=== PATIENT | female | born 2000 | race Two or more races ===

== ENCOUNTER 2020-10-01 03:55 | Emergency (ER) | payer SELFPAY ==
[~2020-10-01] VITALS: Ht 170.2 cm; Wt 75.3 kg
[2020-10-01 04:25] VITALS: BP 114/63
[2020-10-01] MEDS ORDERED: METOCLOPRAMIDE 10 MG/2 ML VIAL ONE (04:50)
[2020-10-01] MEDS ORDERED: ONDANSETRON 4MG INJ ONE (04:50)
[2020-10-01] MEDS ORDERED: PANTOPRAZOLE 40 MG/VIAL ONE (04:51)
[2020-10-01] MEDS ORDERED: KETOROLAC 30MG VIAL (30MG/ML) ONE (04:51)
[2020-10-01] MEDS ORDERED: FAMOTIDINE 20MG VIAL IV ONE ×2 (04:52→05:00)
[2020-10-01] MEDS ORDERED: 0.9%NACL 1000ML 1,000 ML IV ONE ×2 (04:52→05:00)
[2020-10-01 04:54] LABS: BASOPHILS % (AUTO) 0.3 % (0.0-5.0); EOSINOPHILS % (AUTO) 0.2 % (0.0-8.0); HEMATOCRIT 35.5 % (36-48); LYMPHOCYTES % (AUTO) 12.4 % (21.0-51.0); MEAN CORPUSCULAR HGB CONC 33.5 g/dL (32.0-36.0); MEAN CORPUSCULAR VOLUME 86.6 fL (79-99); MONOCYTES % (AUTO) 10.2 % (3.0-13.0); NEUTROPHILS % (AUTO) 76.4 % (40.0-77.0); PLATELET COUNT (AUTO) 289 K/uL (130-400); RED CELL DISTRIBUTION WIDTH 12.6 % (11.0-15.5); WHITE BLOOD COUNT (AUTO) 10.5 K/uL (4.8-10.8)
[2020-10-01] MEDS ORDERED: METOCLOPRAMIDE 10 MG/2 ML VIAL IVP ONE (05:00)
[2020-10-01] MEDS ORDERED: KETOROLAC 30MG VIAL (30MG/ML) IVP ONE (05:00)
[2020-10-01] MEDS ORDERED: ONDANSETRON 4MG INJ IVP ONE (05:00)
[2020-10-01] MEDS ORDERED: PANTOPRAZOLE 40 MG/VIAL IVP ONE (05:00)
[2020-10-01 05:02] LABS: CREATININE 0.8 mg/dL (0.5-1.5); POTASSIUM 3.7 mmol/L (3.5-5.1)
[2020-10-01 05:06] LABS: BILIRUBIN,TOTAL 0.3 mg/dL (0.2-1.0); TOTAL PROTEIN, SERUM 6.9 g/dL (6.0-8.3)
[2020-10-01 05:45] VITALS: BP 98/63
[2020-10-01 06:38] LABS: APPEARANCE,URINE CLEAR (CLEAR); BILIRUBIN,URINE NEGATIVE (NEGATIVE); COLOR,URINE YELLOW (YELLOW); GLUCOSE, URINE (UA) NEGATIVE (NEGATIVE); KETONES,URINE 40 mg/dL (NEGATIVE); LEUKOCYTE ESTERASE ,URINE SMALL (NEGATIVE); NITRATE,URINE NEGATIVE (NEGATIVE); OCCULT BLOOD,URINE TRACE-INTACT (NEGATIVE); PROTEIN,URINE NEGATIVE (NEGATIVE); UROBILINOGEN,URINE 0.2 mg/dL (0.2-1.0)
[2020-10-01 06:52] LABS: RBC,URINE 0-1 /HPF (0-1)
[2020-10-01 06:53] LABS: BACTERIA,URINE Moderate /HPF (None Seen)
[2020-10-01] MEDS ORDERED: CEFTRIAXONE 1G VIAL ONE (08:19)
[2020-10-01] MEDS ORDERED: ONDA4TAB10 PO (08:20)
[2020-10-01] MEDS ORDERED: LACT10SO5 PO (08:20)
[2020-10-01] MEDS ORDERED: CEPH500B PO (08:20)
[2020-10-01] MEDS ORDERED: METO-296 PO (08:20)
[2020-10-01 08:26] VITALS: BP 107/63
[2020-10-01] MEDS ORDERED: CEFTRIAXONE 1G VIAL IVP ONE (08:30)
== END 2020-10-01 08:38 | disposition home or self-care (01) ==
LOC: EDH 03:55
DX: N39.0 Urinary tract infection, site not specified (principal); K59.09 Other constipation; R50.9 Fever, unspecified; R11.2 Nausea with vomiting, unspecified; Z20.822 Contact with and (suspected) exposure to COVID-19; Z88.0 Allergy status to penicillin
CPT/HCPCS: 36415; 74176; 80053; 81001; 83690; 84703; 85025; 87040 ×2; 87077; 87088; 87186; 87635; 87804 ×2; 96361; 96374; 96375; 99284; C9113; C9803; J0696; J1885; J2405; J2765; J3490; J7030

== ENCOUNTER 2024-11-23 08:07 | Emergency (ER) | payer SELFPAY ==
[~2024-11-23] VITALS: Ht 160 cm; Wt 88.9 kg
[~2024-11-23 08:07] MED LIST: CEPH500B PO; LACT-441 PO; METO-296 PO; ONDA-243 PO
[2024-11-23 09:26] VITALS: BP 115/59; PULSE 90; RESP 18; TEMP 98.8; O2SAT 98
--- NOTE | 2024-11-23 09:34 | ERN ---
General Chief Complaint: Fever Stated Complaint: FEVER,BACK PAIN,COUGH Time Seen by MD: 08:09 Source: patient, family History of Present Illness Initial Comments Patient is a 24-year-old female coming in with multiple complaints. Patient states that she has been having fever for a couple of days. Long with the she states he has been having some cough URI symptoms. Along with this she states that she has had urinary discomfort pain. Allergies: Coded Allergies: Penicillins (Unverified Allergy, Unknown, 10/01/20) Home Meds Active Scripts Metoclopramide HCl (Reglan) 10 Mg Tablet, 10 MG PO TIDP, #20 TAB 0 Refills Prov:QUENTIN CORONADO MD 10/01/20 Ondansetron (Ondansetron Odt) 4 Mg Tab.rapdis, 4 MG PO Q6HPRN, #20 TAB 0 Refills Prov:QUENTIN CORONADO MD 10/01/20 Lactulose (Lactulose) 10 Gm/15 Ml Solution, 10 GM PO DAILY PRN for CONSTIPATION, #300 ML 0 Refills Prov:QUENTIN CORONADO MD 10/01/20 Cephalexin Monohydrate (Keflex) 500 Mg Cap, 500 MG PO QID for 10 Days, #40 CAP 0 Refills Prov:QUENTIN CORONADO MD 10/01/20 Past Medical History Past Medical History: Other Medical History Other: CONTROL, KIDNEY PROBLEMS Past Surgical History: Other Female( History) LMP: Nov 16, 2024 ROS Dictation CONSTITUTIONAL: No chills, fever, no weakness, no diaphoresis, no malaise. HEAD/FACE: No signs of trauma. EENT: No eye pain, no blurred vision, no tearing, no double vision, no ear pain, no ear discharge, no nose pain, no nasal congestion, no throat pain, no throat swelling, no mouth pain. RESPIRATORY: No cough, no orthopnea, no SOB, no stridor, no wheezing. CARDIOVASCULAR: No chest pain, no edema, no palpitations, no syncope. GASTROINTESTINAL/ABDOMINAL: No abdominal pain, no constipation, no diarrhea, no nausea, no vomiting. GENITOURINARY: No abnormal discharge, dysuria, no frequent urination, no hematuria. No complaints of pain in the genitals. MUSCULOSKELETAL: No back pain, no gout, no joint pain, no joint swelling, no muscle pain, no muscle stiffness, no neck pain. INTEGUMENTARY: No change in color, no change in hair/nails, no dryness, no lesion, no lumps, no rash. NEUROLOGICAL/PSYCH: No anxiety, not depressed, no emotional problem, no headache, no numbness, no pre-existing deficit, no history of seizures, no tremors, no weakness. HEMATOLOGIC/LYMPHATIC: Not anemic, no history of blood clots, no apparent bleeding, no bruising, glands not swollen. All Systems Negative, Except as Noted. Physical Exam Physical Exam Dictation VITAL SIGNS: Reviewed. GENERAL APPEARANCE: Alert, oriented x3, no acute distress, obese. HEAD AND FACE: Non-traumatic. EYES: PERRL, pink conjunctivas, eyelid no trauma, anterior chamber clear. EARS: Pinnas intact and no signs of trauma or erythema. Ear canals clear and no discharge. Right TMs erythema. NOSE: No discharge, no bleeding. Nasal turbinate swelling OROPHARYNX: Mouth normal, teeth no caries, tongue pink. Pharynx erythema. Tonsils no exudates, no abscesses noted. Mucous membrane moist. NECK: Supple, non-tender, no thyromegaly, no masses, no JVD, no bruits. BREAST: Deferred. CHEST: No tenderness, no crepitus, no paradoxical movement, no retractions. LUNGS: Clear, well-ventilated, symmetric, no rales, no wheezing, no rhonchi, no stridor, good breath sounds bilaterally. HEART: Regular rate, regular rhythm, no murmur, no gallops. VASCULAR: No peripheral edema. ABDOMEN: Soft, positive bowel sounds, nondistended, no guarding, nontender, no rebound, no masses no hepatomegaly, no splenomegaly, no Casas's sign, no hernias. RECTAL: Deferred. GENITAL: Deferred. NEUROLOGICAL: Normal speech, gross motor function intact, gross sensory fu nction intact. MUSCULOSKELETAL: Neck nontender, full range of motion, back nontender, full range of motion. EXTREMITIES: Nontender, full range of motion. SKIN: Color pink, dry, no turgor, no rash, no lacerations, no abrasions, no contusions. LYMPHATICS: Deferred. Results Laboratory and Microbiology Lab and Micro Result Laboratory Tests Test 11/23/24 08:20 Urine Color YELLOW (YELLOW) Urine Appearance CLEAR (CLEAR) Urine pH 7.5 (5.0-8.0) Urine Specific [place] 1.016 (1.001-1.031) Urine Protein NEGATIVE mg/dL (NEGATIVE) Urine Glucose (UA) NEGATIVE mg/dL (NEGATIVE) Urine Ketones NEGATIVE mg/dL (NEGATIVE) Urine Occult Blood NEGATIVE (NEGATIVE) Urine Nitrate NEGATIVE (NEGATIVE) Urine Bilirubin NEGATIVE mg/dL (NEGATIVE) Urine Urobilinogen 0.2 mg/dL (0.2-1.0) Urine Leukocyte Esterase 75 Jaida/uL (NEGATIVE) H Urine RBC 2-5 /HPF (0-1) H Urine WBC 11-25 /HPF (0-1) H Urine Squamous Epithelial Cells RARE /HPF (0-2) Urine Bacteria FEW /HPF (None Seen) Influenza Type A Antigen Negative For Type A Influenza Type B Antigen Negative For Type B SARS-CoV-2, RNA, NAAT NEGATIVE SARS CoV-2 Group A Streptococcus Rapid negative (NEGATIVE) Labs Reviewed?: Yes MDM MDM: Differential diagnosis: UTI, URI, COVID, flu, Rationale: Tests considered and ordered secondary to shared decision making include: Previous outside records reviewed: Old ER visits. Risk of complication and/or morbidity or mortality of patient management: None Medications-Per medication reconciliation Need for hospitalization: Patient does not meet criteria for hospitalization. Need for emergency major/minor surgery: No Patient is a 24-year-old female coming in complaining of fever. Per patient she has been having URI and dysuria for a couple of days. Laboratory workup positive for urinary tract infection. Patient will be discharged in stable condition with a diagnosis of UTI. Antibiotics will be provided for treatment I did advised her appropriate follow up with PCP for long-term management. ED Course Orders Procedure Category Date Status Time Covid Rna Naat LAB 11/23/24 Complete 08:11 Influenza Type A & B, LAB 11/23/24 Complete Rapid 08:11 Rapid (Group A Strep) LAB 11/23/24 Complete 08:11 Urinalysis LAB 11/23/24 Complete W/Microscopic 08:11 Acetaminophen 500mg PHA 11/23/24 Complete Tab (Tylenol 500mg T 08:30 Ibuprofen 600 Mg PHA 11/23/24 Complete Tablet (Motrin) 08:30 Culture Urine MANSOOR 11/23/24 In Process 09:41 Current Medications Medications (Trade) Dose Ordered Sig/Sunny Route PRN Reason Start Time Stop Time Status Last Admin Dose Admin Acetaminophen (TYLenol 500MG TAB) 1,000 mg ONCE ONCE PO 11/23/24 08:30 11/23/24 08:31 DC 11/23/24 08:38 Ibuprofen (moTRIN) 600 mg ONCE ONCE PO 11/23/24 08:30 11/23/24 08:31 DC 11/23/24 08:38 Vital Signs Date Time Temp Pulse Resp B/P (MAP) Pulse Ox O2 Delivery O2 Flow Rate FiO2 11/23/24 09:26 98.8 90 18 115/59 98 Room Air* 0 21 11/23/24 08:38 102.0 11/23/24 08:38 102.0 11/23/24 08:09 102.0 109 20 112/54 98 Room Air DX & DISP Disposition: Discharge Departure Impression: Primary Impression: UTI (urinary tract infection) Condition: Stable Scripts Sulfamethoxazole/Trimethoprim (Bactrim Ds Tablet) 800 Mg-160 Mg Tablet 1 TAB PO BID for 7 Days, #14 TAB 0 Refills Prov: CLAUDIA JESUS MD 11/23/24 Additional Instructions: FOLLOW-UP WITH PRIMARY CARE PROVIDER IN 1 TO 2 DAYS. TAKE MEDICATIONS DIRECTED HERE IN THE EMERGENCY ROOM. OKAY TO CONTINUE HOME MEDICATIONS UNLESS OTHERWISE DISCUSSED DURING YOUR VISIT IN THE EMERGENCY ROOM TODAY. RETURN TO YOUR NEAREST EMERGENCY ROOM IF SYMPTOMS WORSEN OR IF THERE IS NO IMPROVEMENT. CALL 911 IF YOU NEED IMMEDIATE ASSISTANCE. TAKE TYLENOL [id number] NEEDED AND IF NO CONTRAINDICATIONS ARE PRESENT. INCREASE ORAL HYDRATION. A WOUND CULTURE OR URINE CULTURE WAS ORDERED HERE IN THE EMERGENCY ROOM DEPARTMENT PLEASE FOLLOW-UP WITH PRIMARY CARE PROVIDER AND ADVISE THEM TO GET REPORTS FROM OUR FACILITY. IF YOU HAD ANY TREVOR WRAP/SPLINTS THAT WERE APPLIED HERE, PLEASE DO NOT REMOVE THEM UNTIL YOU SEE YOUR PRIMARY CARE OR SPECIALTY. Referrals: Referrals: SELF,REFERRAL (PCP) KWAKU PETERSON MD Time of Disposition: 10:02 CLAUDIA JESUS MD Nov 23, 2024 09:34
[2024-11-23 09:38] LABS: APPEARANCE,URINE CLEAR (CLEAR); GLUCOSE, URINE (UA) NEGATIVE (NEGATIVE); LEUKOCYTE ESTERASE ,URINE 75 Leu/uL (NEGATIVE); NITRATE,URINE NEGATIVE (NEGATIVE); OCCULT BLOOD,URINE NEGATIVE (NEGATIVE); SQUAMOUS EPITHELIAL CELL,UR RARE /HPF (0-2)
[2024-11-23 09:50] LABS: RAPID GROUP A STREP negative (NEGATIVE)
[2024-11-23 09:54] LABS: SARS-CoV-2, RNA, NAAT NEGATIVE SARS CoV-2 (NEGATIVE)
[2024-11-23 10:00] LABS: INFLUENZA TYPE A Negative For Type A (NEGATIVE); INFLUENZA TYPE B Negative For Type B (NEGATIVE)
[2024-11-23] MEDS ORDERED: SULF1TAB42 PO (10:03)
[2024-11-23 10:04] VITALS: TEMP 98.8
== END 2024-11-23 10:08 | disposition home or self-care (01) ==
LOC: EDH 08:07
DX: N39.0 Urinary tract infection, site not specified (principal); Z88.0 Allergy status to penicillin; Z20.822 Contact with and (suspected) exposure to COVID-19; Z79.899 Other long term (current) drug therapy
CPT/HCPCS: 81001; 87086; 87186; 87635; 87804; 87880; 99283